=== PATIENT | female | born 1985 | race Caucasian/White ===

== ENCOUNTER 2019-08-08 14:10 | Emergency (ER) | payer BC ==
[2019-08-08 14:19] VITALS: BP 113/84; PULSE 77
[2019-08-08] MEDS ORDERED: Ondansetron 4 MG/2 ML SDV IVPUSH ONE ×2 (14:45→16:42)
[2019-08-08] MEDS ORDERED: Sodium Chloride 0.9% 10 ML Syringe FLUSH PRN (14:45)
[2019-08-08] MEDS ORDERED: Sodium Chloride 0.9% 1,000 ML IV SCH ×2 (14:45→17:15)
--- NOTE | 2019-08-08 15:08 | EDM.PDOC ---
ED HPI GENERAL MEDICAL PROBLEM - General Chief Complaint: Gastrointestinal Problem Stated Complaint: VOMITING Time Seen by Provider: 08/08/19 14:20 Source of Information: Reports: Patient, Family History Limitations: Reports: No Limitations - History of Present Illness INITIAL COMMENTS - FREE TEXT/NARRATIVE: Patient is a 34-year-old female who presents to the emergency department with intractable vomiting since yesterday. She had a PET scan done yesterday in [place] around 2 PM central time. She states approximate 1 hour later she started vomiting and has been unable to eat or drink anything since that time. 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 PET scan was being done to look for malignancy throughout the body. Patient is type II diabetic and usually uses an insulin pump, however she has had that off since the PET scan was done yesterday. She has not checked her blood sugar since yesterday morning. At the onset of vomiting, she denies any abdominal pain, however after vomiting for a few hours she has developed crampy, left upper quadrant abdominal. She has a history of an ostomy with ostomy takedown. States she had necrotizing fasciitis of her buttocks and ostomy was placed as she was not able to have bowel movements per rectum. Ostomy takedown was done in April of this year. She denies any diarrhea. States she had one soft BM this morning and has been passing gas frequently. Denies fever or chills. Treatments FLIGHT ATTENDANT/INFLIGHT SUPERVISOR: Reports: Other (see below) Other Treatments FLIGHT ATTENDANT/INFLIGHT SUPERVISOR: pepto Abdominal Pain Score (Numeric/FACES): 4 - Related Data Allergies Allergy/AdvReac Type Severity Reaction Status Date / Time cefepime Allergy Rash Verified 08/08/19 14:19 penicillin V Allergy Shortness Verified 08/08/19 14:19 of Breath Home Meds: Home Meds Insulin Glarg,Human.Rec.Analog [Lantus] 40 units SUBCUT DAILY 02/28/14 [History] DULoxetine [Cymbalta] 30 mg PO BID 08/08/19 [History] Gabapentin [Neurontin] 600 mg PO BID 08/08/19 [History] Insulin Aspart [NovoLOG] 100 unit SQ 08/08/19 [History] Ondansetron [Zofran ODT] 4 mg PO Q6H PRN #10 tab.dis 08/08/19 [Rx] ED ROS GENERAL - Review of Systems Review Of Systems: See Below Constitutional: Reports: No Symptoms. Denies: Fever, Chills, Weakness HEENT: Reports: No Symptoms Respiratory: Reports: No Symptoms Cardiovascular: Reports: No Symptoms Endocrine: Reports: No Symptoms GI/Abdominal: Reports: Abdominal Pain, Nausea, Vomiting. Denies: Diarrhea : Reports: No Symptoms Musculoskeletal: Reports: No Symptoms Skin: Reports: No Symptoms Neurological: Reports: No Symptoms Psychiatric: Reports: No Symptoms Hematologic/Lymphatic: Reports: No Symptoms Immunologic: Reports: No Symptoms ED EXAM, GI/ABD - Physical Exam Exam: See Below Exam Limited By: No Limitations General Appearance: Alert, WD/WN, Anxious, Other (Tearful) Respiratory/Chest: No Respiratory Distress, Lungs Clear, Normal Breath Sounds, No Accessory Muscle Use, Chest Non-Tender Cardiovascular: Normal Peripheral Pulses, Regular Rate, Rhythm, No Edema, No Gallop, No JVD, No Murmur, No Rub GI/Abdominal Exam: Normal Bowel Sounds, Soft, No Organomegaly, No Distention, No Abnormal Bruit, No Mass, Pelvis Stable, Tender (Epigastric and left upper quadrant tenderness) Neurological: Alert, Oriented, CN II-XII Intact, Normal Cognition, Normal Gait, Normal Reflexes, No Motor/Sensory Deficits Psychiatric: Anxious, Tearful Skin Exam: Warm, Dry, Intact, Normal Color, No Rash Course - Vital Signs Last Recorded V/S: Last Vital Signs Temp 97.5 F 08/08/19 14:15 Pulse 77 08/08/19 14:15 Resp 20 08/08/19 14:15 BP 113/84 08/08/19 14:15 Pulse Ox 98 08/08/19 14:15 - Orders/Labs/Meds Orders: Active Orders 24 hr Category Date Time Status Blood Glucose Check, Bedside [RC] ONETIME Care 08/08/19 15:03 Active Peripheral IV Care [RC] . DIRECTED Care 08/08/19 14:45 Active UA W/MICROSCOPIC [URIN] Stat Lab 08/08/19 16:55 Ordered Peripheral IV Insertion Adult [OM.PC] Stat Oth 08/08/19 14:45 Ordered Labs: Laboratory Tests 08/08/19 08/08/19 08/08/19 Range/Units 15:13 15:25 15:25 WBC 15.69 H (3.98-10.04) K/mm3 RBC 5.33 H (3.98-5.22) M/mm3 Hgb 13.0 D (11.2-15.7) gm/dl Hct 40.6 (34.1-44.9) % MCV 76.2 L (79.4-94.8) fl MCH 24.4 L (25.6-32.2) pg MCHC 32.0 L (32.2-35.5) g/dl RDW Std Deviation 39.0 (36.4-46.3) fL Plt Count 420 H D (182-369) K/mm3 MPV 9.0 L (9.4-12.3) fl Neut % (Auto) 85.3 H (34.0-71.1) % Lymph % (Auto) 9.3 L (19.3-51.7) % [place] % (Auto) 4.7 (4.7-12.5) % Eos % (Auto) 0.2 L (0.7-5.8) Baso % (Auto) 0.2 (0.1-1.2) % Neut # (Auto) 13.39 H (1.56-6.13) K/mm3 Lymph # (Auto) 1.46 (1.18-3.74) K/mm3 [place] # (Auto) 0.73 H (0.24-0.36) K/mm3 Eos # (Auto) 0.03 L (0.04-0.36) K/mm3 Baso # (Auto) 0.03 (0.01-0.08) K/mm3 Manual Slide Review Abnormal smear Sodium 136 (136-145) mEq/L Potassium 3.9 (3.5-5.1) mEq/L Chloride 100 (98-107) mEq/L Carbon Dioxide 24 (21-32) mEq/L Anion Gap 15.9 H (5-15) BUN 17 (7-18) mg/dL Creatinine 0.8 (0.55-1.02) mg/dL Est Cr Clr Drug Dosing 87.48 mL/min Estimated GFR (MDRD) > 60 (>60) mL/min BUN/Creatinine Ratio 21.3 H (14-18) Glucose 275 H (74-106) mg/dL POC Glucose 265 H (70-105) mg/dL Calcium 8.7 (8.5-10.1) mg/dL Magnesium (1.8-2.4) mg/dl Total Bilirubin 0.5 (0.2-1.0) mg/dL AST 12 L (15-37) U/L ALT 20 (14-59) U/L Alkaline Phosphatase 109 (46-116) U/L C-Reactive Protein 0.8 (<1.0) mg/dL Total Protein 7.5 (6.4-8.2) g/dl Albumin 3.3 L (3.4-5.0) g/dl Globulin 4.2 gm/dL Albumin/Globulin Ratio 0.8 L (1-2) Lipase 50 L (73-393) U/L Urine Color (Yellow) Urine Appearance (Clear) Urine pH (5.0-8.0) Ur Specific [place] (1.005-1.030) Urine Protein (Negative) Urine Glucose (UA) (Negative) Urine Ketones (Negative) Urine Occult Blood (Negative) Urine Nitrite (Negative) Urine Bilirubin (Negative) Urine Urobilinogen (0.2-1.0) Ur Leukocyte Esterase (Negative) Urine RBC (0-5) /hpf Urine WBC (0-5) /hpf Ur Squamous Epith Cells (0-5) /hpf Urine Bacteria (FEW) /hpf Urine Mucus (FEW) /hpf Ketones (0.0-0.3) mM 08/08/19 08/08/19 08/08/19 Range/Units 15:25 15:25 16:45 WBC (3.98-10.04) K/mm3 RBC (3.98-5.22) M/mm3 Hgb (11.2-15.7) gm/dl Hct (34.1-44.9) % MCV (79.4-94.8) fl MCH (25.6-32.2) pg MCHC (32.2-35.5) g/dl RDW Std Deviation (36.4-46.3) fL Plt Count (182-369) K/mm3 MPV (9.4-12.3) fl Neut % (Auto) (34.0-71.1) % Lymph % (Auto) (19.3-51.7) % [place] % (Auto) (4.7-12.5) % Eos % (Auto) (0.7-5.8) Baso % (Auto) (0.1-1.2) % Neut # (Auto) (1.56-6.13) K/mm3 Lymph # (Auto) (1.18-3.74) K/mm3 [place] # (Auto) (0.24-0.36) K/mm3 Eos # (Auto) (0.04-0.36) K/mm3 Baso # (Auto) (0.01-0.08) K/mm3 Manual Slide Review Sodium (136-145) mEq/L Potassium (3.5-5.1) mEq/L Chloride (98-107) mEq/L Carbon Dioxide (21-32) mEq/L Anion Gap (5-15) BUN (7-18) mg/dL Creatinine (0.55-1.02) mg/dL Est Cr Clr Drug Dosing mL/min Estimated GFR (MDRD) (>60) mL/min BUN/Creatinine Ratio (14-18) Glucose (74-106) mg/dL POC Glucose (70-105) mg/dL Calcium (8.5-10.1) mg/dL Magnesium 1.7 L (1.8-2.4) mg/dl Total Bilirubin (0.2-1.0) mg/dL AST (15-37) U/L ALT (14-59) U/L Alkaline Phosphatase (46-116) U/L C-Reactive Protein (<1.0) mg/dL Total Protein (6.4-8.2) g/dl Albumin (3.4-5.0) g/dl Globulin gm/dL Albumin/Globulin Ratio (1-2) Lipase (73-393) U/L Urine Color Yellow (Yellow) Urine Appearance Clear (Clear) Urine pH 6.0 (5.0-8.0) Ur Specific [place] > or = 1.030 (1.005-1.030) Urine Protein Negative (Negative) Urine Glucose (UA) 2+ H (Negative) Urine Ketones 4+ H (Negative) Urine Occult Blood Negative (Negative) Urine Nitrite Negative (Negative) Urine Bilirubin Negative (Negative) Urine Urobilinogen 0.2 (0.2-1.0) Ur Leukocyte Esterase Negative (Negative) Urine RBC 0-5 (0-5) /hpf Urine WBC 0-5 (0-5) /hpf Ur Squamous Epith Cells 5-10 H (0-5) /hpf Urine Bacteria Few (FEW) /hpf Urine Mucus Moderate H (FEW) /hpf Ketones 0.73 (0.0-0.3) mM 08/08/19 Range/Units 17:41 WBC (3.98-10.04) K/mm3 RBC (3.98-5.22) M/mm3 Hgb (11.2-15.7) gm/dl Hct (34.1-44.9) % MCV (79.4-94.8) fl MCH (25.6-32.2) pg MCHC (32.2-35.5) g/dl RDW Std Deviation (36.4-46.3) fL Plt Count (182-369) K/mm3 MPV (9.4-12.3) fl Neut % (Auto) (34.0-71.1) % Lymph % (Auto) (19.3-51.7) % [place] % (Auto) (4.7-12.5) % Eos % (Auto) (0.7-5.8) Baso % (Auto) (0.1-1.2) % Neut # (Auto) (1.56-6.13) K/mm3 Lymph # (Auto) (1.18-3.74) K/mm3 [place] # (Auto) (0.24-0.36) K/mm3 Eos # (Auto) (0.04-0.36) K/mm3 Baso # (Auto) (0.01-0.08) K/mm3 Manual Slide Review Sodium (136-145) mEq/L Potassium (3.5-5.1) mEq/L Chloride (98-107) mEq/L Carbon Dioxide (21-32) mEq/L Anion Gap (5-15) BUN (7-18) mg/dL Creatinine (0.55-1.02) mg/dL Est Cr Clr Drug Dosing mL/min Estimated GFR (MDRD) (>60) mL/min BUN/Creatinine Ratio (14-18) Glucose (74-106) mg/dL POC Glucose 206 H (70-105) mg/dL Calcium (8.5-10.1) mg/dL Magnesium (1.8-2.4) mg/dl Total Bilirubin (0.2-1.0) mg/dL AST (15-37) U/L ALT (14-59) U/L Alkaline Phosphatase (46-116) U/L C-Reactive Protein (<1.0) mg/dL Total Protein (6.4-8.2) g/dl Albumin (3.4-5.0) g/dl Globulin gm/dL Albumin/Globulin Ratio (1-2) Lipase (73-393) U/L Urine Color (Yellow) Urine Appearance (Clear) Urine pH (5.0-8.0) Ur Specific [place] (1.005-1.030) Urine Protein (Negative) Urine Glucose (UA) (Negative) Urine Ketones (Negative) Urine Occult Blood (Negative) Urine Nitrite (Negative) Urine Bilirubin (Negative) Urine Urobilinogen (0.2-1.0) Ur Leukocyte Esterase (Negative) Urine RBC (0-5) /hpf Urine WBC (0-5) /hpf Ur Squamous Epith Cells (0-5) /hpf Urine Bacteria (FEW) /hpf Urine Mucus (FEW) /hpf Ketones (0.0-0.3) mM Meds: Medications Discontinued Medications Generic Name Dose Route Start Last Admin Trade Name Freq PRN Reason Stop Dose Admin Hydromorphone HCl 0.5 mg 08/08/19 16:24 08/08/19 16:47 Dilaudid IVPUSH 08/08/19 16:25 0.5 mg ONETIME ONE Administration Hydromorphone HCl 0.5 mg 08/08/19 17:16 08/08/19 17:31 Dilaudid IVPUSH 08/08/19 17:17 0.5 mg ONETIME ONE Administration Sodium Chloride 1,000 mls @ 999 mls/hr 08/08/19 14:45 08/08/19 15:31 Normal Saline IV 999 mls/hr ASDIRECTED ROLAND Administration Sodium Chloride 1,000 mls @ 150 mls/hr 08/08/19 17:15 08/08/19 17:32 Normal Saline IV 150 mls/hr ASDIRECTED ROLAND Administration Insulin Human Regular 5 unit 08/09/19 17:14 Humulin R SUBCUT 08/09/19 17:15 ONETIME ONE Insulin Human Regular 5 unit 08/08/19 17:14 08/08/19 17:38 Humulin R SUBCUT 08/08/19 17:15 5 unit ONETIME ONE Administration Lorazepam 0.5 mg 08/08/19 17:09 08/08/19 17:31 Ativan IVPUSH 08/08/19 17:10 0.5 mg ONETIME ONE Administration Ondansetron HCl 4 mg 08/08/19 14:45 08/08/19 15:31 Zofran IVPUSH 08/08/19 14:46 4 mg ONETIME ONE Administration Ondansetron HCl 4 mg 08/08/19 16:42 08/08/19 16:46 Zofran IVPUSH 08/08/19 16:43 4 mg ONETIME ONE Administration Sodium Chloride 10 ml 08/08/19 14:45 08/08/19 15:31 Saline Flush FLUSH 10 ml ASDIRECTED PRN Administration Keep Vein Open - Re-Assessments/Exams Free Text/Narrative Re-Assessment/Exam: 08/08/19 16:26 Hematology was significant for WBC at 15.69, anion gap 15.9. Lipase was low at 50, ketones normal at 0.73. Patient has not been vomiting further. She is complaining of pain in her hand and her right foot. She states that she has neuropathy and was unable to take her gabapentin today due to the vomiting. I will order Dilaudid 0.5 mg. She is giving us a urine sample now. 08/08/19 1710 Patient did not have much relief after the Dilaudid 0.5. She also is quite anxious. I have ordered Ativan 0.5 mg IV, Dilaudid 0.5 mg IV, and 5 units of subcutaneous insulin. 08/08/19 18:10 Patient is feeling much better after the medications given. Her abdominal pain has resolved. She is attempting to drink water and diet soda at this time. 08/08/19 18:40 Patient continues to feel well, has had no further pain or vomiting and has been able to keep fluids down. We will discharge her home with a prescription for Zofran and clear clear liquid diet for the next 24 to 48 hours. Departure - Departure Time of Disposition: 18:45 Disposition: Home, Self-Care 01 Condition: Good Clinical Impression: Vomiting, Abdominal pain - Discharge Information *PRESCRIPTION DRUG MONITORING PROGRAM REVIEWED*: No *COPY OF PRESCRIPTION DRUG MONITORING REPORT IN PATIENT GANGA: No Prescriptions: Ondansetron [Zofran ODT] 4 mg PO Q6H PRN #10 tab.dis PRN Reason: Nausea/Vomiting Instructions: Abdominal Pain, Adult, Vomiting, Adult Referrals: Crissy Perez NP [Primary Care Provider] - Forms: ED Department Discharge Additional Instructions: You were seen in the emergency department for intractable vomiting and abdominal pain since last night. Blood work and urinalysis was completed and found to be overall unremarkable. While in the ER you received a liter of IV fluids, Zofran for nausea, Dilaudid for pain, and Ativan for anxiety. He did feel much better after these medications. You have been able to keep fluids down while in the emergency department. Recommend that you go home and rest. Maintain a clear liquid diet for the next 24 to 48 hours. After that you may slowly advance as tolerated. Avoid dairy products and fruit juices until your symptoms have completely resolved. A prescription for Zofran has been sent to [facility] and [facility]. You may use this every 6 hours as needed for nausea. If your symptoms should worsen, please not hesitate to return to the emergency departme nt. Sepsis Event Note (ED) - Evaluation Sepsis Screening Result: No Definite Risk - Focused Exam Vital Signs: Vital Signs Temp Pulse Resp BP Pulse Ox 08/08/19 14:15 97.5 F 77 20 113/84 98 - My Orders Last 24 Hours: My Active Orders 08/08/19 14:45 Peripheral IV Care [RC] . DIRECTED Peripheral IV Insertion Adult [OM.PC] Stat 08/08/19 15:03 Blood Glucose Check, Bedside [] ONETIME 08/08/19 16:55 UA W/MICROSCOPIC [URIN] Stat - Assessment/Plan Last 24 Hours: My Active Orders 08/08/19 14:45 Peripheral IV Care [RC] . DIRECTED Peripheral IV Insertion Adult [OM.PC] Stat 08/08/19 15:03 Blood Glucose Check, Bedside [RC] ONETIME 08/08/19 16:55 UA W/MICROSCOPIC [URIN] Stat
[2019-08-08] MEDS ORDERED: HYDROmorphone 0.5 MG/0.5 ML Syringe IVPUSH ONE ×2 (16:24→17:16)
[2019-08-08] MEDS ORDERED: LORazepam 2 MG/ML SDV IVPUSH ONE (17:09)
[2019-08-08] MEDS ORDERED: Insulin Regular, Human 100 Units/ML 3 ML Vial SUBCUT ONE (17:14)
[2019-08-09] MEDS ORDERED: Insulin Regular, Human 100 Units/ML 3 ML Vial SUBCUT ONE (17:14)
== END 2019-08-08 18:55 | disposition home or self-care (01) ==
LOC: JD.ED 14:10
DX: R11.10 Vomiting, unspecified (principal); R10.12 Left upper quadrant pain; R10.13 Epigastric pain; Z88.1 Allergy status to other antibiotic agents; Z88.0 Allergy status to penicillin; Z79.4 Long term (current) use of insulin; Z79.899 Other long term (current) drug therapy
CPT/HCPCS: 36415; 80053; 81001; 82009; 82962; 83690; 83735; 85025; 86140; 96361; 96374; 96375; 96376; 99284; J1170; J1815; J2060; J2405; J7030

== ENCOUNTER 2019-11-28 16:52 | Emergency (ER) | payer BC ==
--- NOTE | 2019-11-28 18:10 | EDM.PDOC ---
ED HPI GENERAL MEDICAL PROBLEM - General Chief Complaint: Lower Extremity Injury/Pain Stated Complaint: LEAKAGE POST SURGERY Time Seen by Provider: 11/28/19 17:33 Source of Information: Reports: Patient, RN Notes Reviewed History Limitations: Reports: No Limitations - History of Present Illness INITIAL COMMENTS - FREE TEXT/NARRATIVE: Patient is a 34-year-old female who presents to the ED for drainage at her surgical site. 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 Patel and Dr. Chang at [facility], without complications. She was sent home with pain medications and return precautions with a follow-up appointment sometime at the end of November. She states that the pain is manageable, but she does appreciate some drainage from the site, and this was draining through the splint that was placed. She is having no fevers, no chills, no cough no shortness of breath, and has been feeling well otherwise. Right Foot Pain Score (Numeric/FACES): 6 - Related Data Allergies Allergy/AdvReac Type Severity Reaction Status Date / Time cefepime Allergy Rash Verified 11/28/19 17:24 penicillin V Allergy Shortness Verified 11/28/19 17:24 of Breath Home Meds: Home Meds Gabapentin [Neurontin] 600 mg PO BID 08/08/19 [History] Insulin Aspart [NovoLOG] 100 unit SQ 08/08/19 [History] Past Medical History HEENT History: Reports: Impaired Vision Gastrointestinal History: Reports: Other (See Below) Musculoskeletal History: Reports: Other (See Below) Other Musculoskeletal History: tumor to Right heel Neurological History: Reports: Neuropathy, Diabetic Psychiatric History: Reports: Anxiety, Depression Endocrine/Metabolic History: Reports: Diabetes, Type II - Infectious Disease History Infectious Disease History: Reports: Other (See Below) Other Infectious Disease History: michelle dockery - Past Surgical History GI Surgical History: Reports: Other (See Below) Other GI Surgeries/Procedures: colostomy reversal Dermatological Surgical History: Reports: Plastic Surgical Reconstruction/Repair, Skin Graft Social & Family History - Caffeine Use Caffeine Use: Reports: Soda, Tea Review of Systems - Review of Systems Review Of Systems: Comprehensive ROS is negative, except as noted in HPI. ED EXAM, GENERAL - Physical Exam Exam: See Below Exam Limited By: No Limitations General Appearance: Alert, WD/WN, No Apparent Distress Respiratory/Chest: No Respiratory Distress, Lungs Clear, Normal Breath Sounds, No Accessory Muscle Use, Chest Non-Tender Cardiovascular: Normal Peripheral Pulses, Regular Rate, Rhythm, No Murmur Peripheral Pulses: 2+: Dorsalis Pedis (L), Dorsalis Pedis (R) Extremities: Normal Capillary Refill, Redness (at site of incision but not overly tender) Neurological: Alert, Oriented, Normal Cognition, No Motor/Sensory Deficits Psychiatric: Normal Affect, Normal Mood Skin Exam: Warm, Dry, Normal Color, No Rash, Wound/Incision ([place] in place to the wound, there is what appears to be serous bloody drainage coming from the wound, there is about 2+ edema on the patient's medial malleolus.) ED TRAUMA EXTREMITY PROCEDURES - Splinting Right Lower Extremity Splint Site: R ankle Pre-Procedure NV Status: Normal Post-Procedure NV Status: Normal Splint Material: Fiberglass Splint Design: Posterior Applied & Form Fitted By: Provider, Nurse Provider Post-Splint Application NV Check: NV Status Normal, Good Position Complications: No Course - Vital Signs Last Recorded V/S: Last Vital Signs Temp 97.8 F 11/28/19 18:44 Pulse 74 11/28/19 18:44 Resp 16 11/28/19 18:44 BP 94/60 11/28/19 18:44 Pulse Ox 94 L 11/28/19 18:44 - Orders/Labs/Meds Meds: Medications Discontinued Medications Generic Name Dose Route Start Last Admin Trade Name Freq PRN Reason Stop Dose Admin Oxycodone/Acetaminophen 1 tab 11/28/19 19:27 11/28/19 19:30 Percocet 325-5 Mg PO 11/28/19 19:28 1 tab ONETIME ONE Administration - Re-Assessments/Exams Free Text/Narrative Re-Assessment/Exam: 11/28/19 18:15 I was in to evaluate the patient, along with Dr. Butler regarding the patient's cadaver bone. The patient's wound was draining, which appeared to be serosanguineous drainage. I did call [facility] for evaluation, and was able to talk with the straw baler web application dev specialist, and he states to redress the wound, preferably with Betadine gauze, and give the patient doxycycline 100 mg twice daily x7 days. He states also to re-splint the wound for immobilization. Departure - Departure Time of Disposition: 19:53 Disposition: Home, Self-Care 01 Condition: Good Clinical Impression: Draining postoperative wound Qualifiers: Encounter type: initial encounter Qualified Code(s): T81.89XA - Other complications of procedures, not elsewhere classified, initial encounter - Discharge Information *PRESCRIPTION DRUG MONITORING PROGRAM REVIEWED*: No *COPY OF PRESCRIPTION DRUG MONITORING REPORT IN PATIENT GANGA: No Instructions: Cast or Splint Care, Adult, [id number] Referrals: Crissy Perez NP [Primary Care Provider] - Forms: ED Department Discharge Additional Instructions: You were evaluated in the ER today for your draining wound. This was identified to be serosanguineous, and is an okay type of drainage to be coming from the wound postop. You were placed on doxycycline 100 mg twice daily for the next 7 days to provide further antibiotic coverage. Your case was discussed with on-call surgeons at [facility] in [place], and they were okay with this plan, they will be in contact with your surgeons, hopefully and have them follow-up with you tomorrow. Please keep all other appointments as previously scheduled. You were given a few more absorbent pads, if you should start draining through the bandages today, you may take the splint off very carefully, replace the pads, and have your help you rewrap the foot as we showed you today. Please return to the ER at any time if symptoms change or worsen. Sepsis Event Note (ED) - Evaluation Sepsis Screening Result: No Definite Risk - Focused Exam Vital Signs: Vital Signs Temp Pulse Resp BP Pulse Ox 11/28/19 18:44 97.8 F 74 16 94/60 94 L 11/28/19 17:18 98.0 F 83 20 101/64 94 L
[2019-11-28 18:45] VITALS: BP 94/60; PULSE 74
[2019-11-28] MEDS ORDERED: Acetaminophen/oxyCODONE 325-5 MG Tab PO ONE (19:27)
== END 2019-11-28 20:15 | disposition home or self-care (01) ==
LOC: JD.ED 16:52
DX: T81.89XA Other complications of procedures, not elsewhere classified, initial encounter (principal); E11.40 Type 2 diabetes mellitus with diabetic neuropathy, unspecified; Z79.4 Long term (current) use of insulin; Z88.0 Allergy status to penicillin; Z88.1 Allergy status to other antibiotic agents
CPT/HCPCS: 29515; 99283; A9270

== ENCOUNTER 2019-12-15 23:42 | Emergency (ER) | payer BC ==
[2019-12-16 00:01] VITALS: BP 103/68; PULSE 91
--- NOTE | 2019-12-16 01:09 | EDM.PDOC ---
ED HPI GENERAL MEDICAL PROBLEM - General Chief Complaint: Lower Extremity Injury/Pain Stated Complaint: OPEN WOUND ON RIGHT HEEL Time Seen by Provider: 12/16/19 00:59 - History of Present Illness INITIAL COMMENTS - FREE TEXT/NARRATIVE: 34-year-old female presents the emergency room with a draining lesion on her right heel. 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 This was done November 22. She had follow-up with her surgeon on 06 December. Earlier this last week one of her stacey pulled loose and the incision opened up in this area. She has had increased watery drainage from this area. She is not aware of any fevers or chills. She is strictly staying off this no weightbearing. - Related Data Allergies Allergy/AdvReac Type Severity Reaction Status Date / Time cefepime Allergy Rash Verified 12/16/19 00:01 penicillin V Allergy Shortness Verified 12/16/19 00:01 of Breath Home Meds: Home Meds Gabapentin [Neurontin] 600 mg PO TID 08/08/19 [History] Insulin Aspart [NovoLOG] 50 unit SQ DAILY 08/08/19 [History] Escitalopram Oxalate [Lexapro] 20 mg PO DAILY 12/16/19 [History] hydrOXYzine pamoate [Hydroxyzine Pamoate] 50 mg PO Q6H PRN 12/16/19 [History] Past Medical History HEENT History: Reports: Impaired Vision Gastrointestinal History: Reports: Other (See Below) Musculoskeletal History: Reports: Other (See Below) Other Musculoskeletal History: tumor to Right heel Neurological History: Reports: Neuropathy, Diabetic Psychiatric History: Reports: Anxiety, Depression Endocrine/Metabolic History: Reports: Diabetes, Type II - Infectious Disease History Infectious Disease History: Reports: Other (See Below) Other Infectious Disease History: epstien dockery - Past Surgical History GI Surgical History: Reports: Other (See Below) Other GI Surgeries/Procedures: colostomy reversal Dermatological Surgical History: Reports: Plastic Surgical Reconstruction/Repair, Skin Graft Social & Family History - Tobacco Use Tobacco Use Status *Q: Never Tobacco User - Caffeine Use Caffeine Use: Reports: Soda, Tea - Recreational Drug Use Recreational Drug Use: No Review of Systems - Review of Systems Review Of Systems: See Below Constitutional: Reports: No Symptoms Respiratory: Reports: No Symptoms Cardiovascular: Reports: No Symptoms GI/Abdominal: Reports: No Symptoms Neurological: Reports: No Symptoms Psychiatric: Reports: Anxiety (Mild secondary to her current health problems) ED EXAM, GENERAL - Physical Exam Exam: See Below Exam Limited By: No Limitations General Appearance: Alert, Anxious, Mild Distress (Secondary to her anxiety) Head: Atraumatic, Normocephalic Neck: Normal Inspection, Supple, Non-Tender, Full Range of Motion Respiratory/Chest: No Respiratory Distress, Lungs Clear, Normal Breath Sounds Cardiovascular: Regular Rate, Rhythm, No Edema, No Murmur Extremities: Other (Leg shows mildly edematous area with no significant erythema or warmth around the ankle foot or incision site. She is got a 1-1/2 cm long area open with some watery drainage. Culture was obtained of the fluid. The skin it is tense indicating some inflammation given the significance of the surgery this probably is not abnormal.) Course - Vital Signs Last Recorded V/S: Last Vital Signs Temp 37.1 C 12/15/19 23:58 Pulse 91 12/15/19 23:58 Resp 16 12/15/19 23:58 BP 103/68 12/15/19 23:58 Pulse Ox 99 12/15/19 23:58 - Orders/Labs/Meds Orders: Active Orders 24 hr Category Date Time Status Calcaneous Rt [CR] Stat Exams 12/16/19 01:23 Taken CULTURE WOUND [RM] Stat Lab 12/16/19 01:15 Received Labs: Laboratory Tests 12/16/19 12/16/19 12/16/19 Range/Units 01:34 01:34 01:34 WBC 10.34 H (3.98-10.04) K/mm3 RBC 4.55 (3.98-5.22) M/mm3 Hgb 10.1 L D (11.2-15.7) gm/dl Hct 33.7 L (34.1-44.9) % MCV 74.1 L (79.4-94.8) fl MCH 22.2 L (25.6-32.2) pg MCHC 30.0 L (32.2-35.5) g/dl RDW Std Deviation 40.9 (36.4-46.3) fL Plt Count 793 H D (182-369) K/mm3 MPV 8.3 L (9.4-12.3) fl Neutrophils % (Manual) 56 (40-60) % Band Neutrophils % 0 (0-10) % Lymphocytes % (Manual) 25 (20-40) % Atypical Lymphs % 11 % Monocytes % (Manual) 5 (2-10) % Eosinophils % (Manual) 3 (0.7-5.8) % Basophils % (Manual) 0 L (0.1-1.2) Platelet Estimate Marked inc Plt Morphology Comment Normal Hypochromasia 2+ moderate Microcytosis 2+ moderate RBC Morph Comment Not Reportable ESR 70 H (0-20) mm/hr Sodium 136 (136-145) mEq/L Potassium 4.2 (3.5-5.1) mEq/L Chloride 100 (98-107) mEq/L Carbon Dioxide 27 (21-32) mEq/L Anion Gap 13.2 (5-15) BUN 16 (7-18) mg/dL Creatinine 0.9 (0.55-1.02) mg/dL Est Cr Clr Drug Dosing 77.76 mL/min Estimated GFR (MDRD) > 60 (>60) mL/min BUN/Creatinine Ratio 17.8 (14-18) Glucose 158 H (74-106) mg/dL Calcium 8.8 (8.5-10.1) mg/dL Total Bilirubin 0.2 (0.2-1.0) mg/dL AST 6 L (15-37) U/L ALT 11 L (14-59) U/L Alkaline Phosphatase 112 (46-116) U/L C-Reactive Protein 3.9 H* (<1.0) mg/dL Total Protein 7.7 (6.4-8.2) g/dl Albumin 2.5 L (3.4-5.0) g/dl Globulin 5.2 gm/dL Albumin/Globulin Ratio 0.5 L (1-2) Meds: Medications Discontinued Medications Generic Name Dose Route Start Last Admin Trade Name Freq PRN Reason Stop Dose Admin Lorazepam 0.5 mg 12/16/19 02:00 12/16/19 02:23 Ativan PO 12/16/19 02:01 0.5 mg ONETIME ONE Administration - Radiology Interpretation Free Text/Narrative:: I will check x-rays a CBC and inflammatory markers. - Re-Assessments/Exams Free Text/Narrative Re-Assessment/Exam: 12/16/19 04:31 X-ray examination of her foot shows multiple surgical screws that look like they are in good position over the bone graft the broken bone screws do bridge the calcaneocuboid joint as well as the talocalcaneal joint. Multiple skin stacey appreciated questionable cuboid fracture with the bone screw bridging the calcaneocuboid joint her white count is minimally elevated with an absolutely normal differential no bandemia and no elevated neutrophils lymphocytes are normal. C-reactive protein and sed rate are elevated. Patient's case was discussed with Dr. Daily orthopedic surgeon at [facility] who is on-call for Dr. Chang. His recommendation is to have the patient call first thing Tuesday 7:00 our time to discuss the situation with Dr. Chang and/or staff to discuss follow-up this next week possibly Tuesday. I have discussed this with the patient and her overall situation and have strongly recommended she work on keeping her foot elevated as much as she can above the level of her heart and see if this facilitates some of the swelling in her foot and ankle and diminishes the drainage. Is in agreement to the treatment plan as stated above and she agrees to return to the emergency room with any questions problems or worsening symptoms. Departure - Departure Time of Disposition: 04:34 Disposition: Home, Self-Care 01 Clinical Impression: Postoperative wound breakdown - Discharge Information Referrals: Crissy Perez NP [Primary Care Provider] - Forms: ED Department Discharge Additional Instructions: Return to the emergency room with any questions problems or worsening symptoms. Return if you develop any fevers if the area becomes more swollen or red. Call Dr. Chang first thing Tuesday, 7:00 our time, and request follow-up early this next week possibly even later Tuesday. Keep your foot elevated as much as you can above the level of your heart to see if this helps with the swelling around your ankle and foot and decreases the drainage from the area. Sepsis Event Note (ED) - Evaluation Sepsis Screening Result: No Definite Risk - Focused Exam Vital Signs: Vital Signs Temp Pulse Resp BP Pulse Ox 12/15/19 23:58 37.1 C 91 16 103/68 99 - My Orders Last 24 Hours: My Active Orders 12/16/19 01:15 CULTURE WOUND [RM] Stat 12/16/19 01:23 Calcaneous Rt [CR] Stat - Assessment/Plan Last 24 Hours: My Active Orders 12/16/19 01:15 CULTURE WOUND [RM] Stat 12/16/19 01:23 Calcaneous Rt [CR] Stat
[2019-12-16] MEDS ORDERED: LORazepam 0.5 MG Tab PO ONE (02:00)
--- NOTE | 2019-12-17 09:59 | CR ---
PROCEDURE INFORMATION: Exam: XR Right Calcaneus Exam date and time: 12/16/2019 1:18 AM Age: 34 years old Clinical indication: Edema and swelling, leg or foot; Location not specified; Prior surgery; Surgery date: <1 month; Surgery type: RT calcaneus cadaver bone inserted with pins/screws; Patient HX: Swelling, right foot lateral side open wound, oozing S/P SX 3 weeks prior TECHNIQUE: Imaging protocol: XR of the Right calcaneus. Views: 2 or more views. COMPARISON: No relevant prior studies available. FINDINGS: Bones/joints: 2 cancellous bone screws are seen stabilizing prior recent comminuted posterior calcaneal fractures with multiple associated small bone fragments. Osteopenia. No neoplastic osseous lesion. No acute joint dislocation. Bone screw bridging calcaneocuboid joint with probable cuboid fracture with adjacent bone fragments. Bone screws extend across talocalcaneal joint. Soft tissues: Posterior and plantar skin stacey noted laterally. IMPRESSION: 1. Postoperative changes as above. 2. Remainder of findings described as above. Thank you for allowing us to participate in the care of your patient. Dictated and Authenticated by: Shahid Carranza MD 12/16/2019 3:31 AM Central Time ([place] & [place]) RACHEL
== END 2019-12-16 04:50 | disposition home or self-care (01) ==
LOC: JD.ED 23:42
DX: T81.31XA Disruption of external operation (surgical) wound, not elsewhere classified, initial encounter (principal); E11.40 Type 2 diabetes mellitus with diabetic neuropathy, unspecified; F41.9 Anxiety disorder, unspecified; F32.9 Major depressive disorder, single episode, unspecified; Z88.0 Allergy status to penicillin; Z88.1 Allergy status to other antibiotic agents; Z79.4 Long term (current) use of insulin; Z79.899 Other long term (current) drug therapy
CPT/HCPCS: 36415; 73650; 80053; 85007; 85027; 85652; 86140; 87070; 87186; 99284; A9270; 99283

== ENCOUNTER 2020-02-04 11:17 | Emergency (ER) | payer BC ==
[2020-02-04 11:39] VITALS: BP 112/72; PULSE 93
--- NOTE | 2020-02-04 12:36 | EDM.PDOC ---
ED HPI GENERAL MEDICAL PROBLEM - General Chief Complaint: Wound Recheck Stated Complaint: SENT BY [facility] FOR FOOT INFECTION Time Seen by Provider: 02/04/20 12:20 Source of Information: Reports: Patient History Limitations: Reports: No Limitations, Other (Vital signs in the emergency department temp 98.2, pulse 93, respiratory rate 18, blood pressure 112/72, pulse ox 100% on room air.) - History of Present Illness INITIAL COMMENTS - FREE TEXT/NARRATIVE: 34-year-old female presents to the ER from [facility] with complaints of an infected heel. 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 She has had a wound VAC in place since a month after surgery because it was not healing. Of note patient is a diabetic and she does smoke so she is more likely to have delayed wound healing. Patient states that back in December she was also placed on a 7-day course of clindamycin for an infection to that heel. Patient states that on January 30 the wound VAC was changed per physical therapy and they noted white purulent drainage coming from the incision site to her heel. Patient states that since she has noticed some chills starting over the last couple of days and more erythema and warmth spreading from wound site. Right Foot Pain Score (Numeric/FACES): 6 - Related Data Allergies Allergy/AdvReac Type Severity Reaction Status Date / Time cefepime Allergy Rash Verified 02/04/20 11:39 penicillin V Allergy Shortness Verified 02/04/20 11:39 of Breath Home Meds: Home Meds Gabapentin [Neurontin] 600 mg PO TID 08/08/19 [History] Insulin Aspart [NovoLOG] 50 unit SQ DAILY 08/08/19 [History] Escitalopram Oxalate [Lexapro] 20 mg PO DAILY 12/16/19 [History] hydrOXYzine pamoate [Hydroxyzine Pamoate] 50 mg PO Q6H PRN 12/16/19 [History] Doxycycline [Vibra-Tabs] 100 mg PO Q12HR #27 tab 02/04/20 [Rx] Past Medical History HEENT History: Reports: Impaired Vision Gastrointestinal History: Reports: Other (See Below) Musculoskeletal History: Reports: Other (See Below) Other Musculoskeletal History: tumor to Right heel, cadavar placed to heel. Neurological History: Reports: Neuropathy, Diabetic Psychiatric History: Reports: Anxiety, Depression Endocrine/Metabolic History: Reports: Diabetes, Type II - Infectious Disease History Infectious Disease History: Reports: Other (See Below) Other Infectious Disease History: epstien dockery - Past Surgical History GI Surgical History: Reports: Other (See Below) Other GI Surgeries/Procedures: colostomy reversal Other Musculoskeletal Surgeries/Procedures:: tumor to Right heel removed, cadavar placed to heel. Dermatological Surgical History: Reports: Plastic Surgical Reconstruction/Repair, Skin Graft Social & Family History - Tobacco Use Tobacco Use Status *Q: Current Some Day Tobacco User Years of Tobacco use: 18 Packs/Tins Daily: 0.1 - Caffeine Use Caffeine Use: Reports: Soda, Tea ED ROS GENERAL - Review of Systems Review Of Systems: See Below Constitutional: Reports: Chills. Denies: Fever HEENT: Reports: No Symptoms, Glasses Respiratory: Reports: No Symptoms Cardiovascular: Reports: Edema (Bilateral lower extremities) Endocrine: Reports: No Symptoms GI/Abdominal: Reports: No Symptoms : Reports: No Symptoms Musculoskeletal: Reports: Foot Pain (Right foot) Skin: Reports: Erythema, Wound (Right heel), Change in Color, Other (Edema) Neurological: Reports: No Symptoms Psychiatric: Reports: No Symptoms Hematologic/Lymphatic: Reports: No Symptoms Immunologic: Reports: No Symptoms ED EXAM, SKIN/RASH Exam: See Below Exam Limited By: No Limitations General Appearance: Alert, WD/WN, No Apparent Distress Eye Exam: Bilateral Eye: PERRL Ears: Hearing Grossly Normal Nose: Normal Inspection Throat/Mouth: Normal Voice, No Airway Compromise Head: Atraumatic, Normocephalic Neck: Normal Inspection, Supple, Non-Tender, Full Range of Motion Respiratory/Chest: No Respiratory Distress, Lungs Clear, Normal Breath Sounds, No Accessory Muscle Use, Chest Non-Tender Cardiovascular: Normal Peripheral Pulses, Regular Rate, Rhythm, No Murmur. No: No Edema (3+ to right lower extremity) Peripheral Pulses: 2+: Radial (L), Radial (R), Dorsalis Pedis (L), Dorsalis Pedis (R) GI/Abdominal: Normal Bowel Sounds, Soft, Non-Tender, No Distention (Female) Exam: Deferred Rectal (Female) Exam: Deferred Back Exam: Normal Inspection, Full Range of Motion Extremities: Pedal Edema (Right lower extremity 3+.), Increased Warmth (Right lower extremity just below the ankle medial and lateral Up to the mid Achilles area posterior. ), Redness (No erythema noted to the dorsal aspect of the patient's right lower extremity. Erythema noted below the ankle laterally and medially and posteriorly to the mid Achilles area. Patient states this is similar in appearance to when she was previously placed on antibiotics mid- December.) Neurological: Alert, Oriented, Normal Cognition, Normal Reflexes Psychiatric: Normal Affect, Normal Mood Skin: Warm, Dry, Normal Color, No Rash, Erythema (Right lower extremity just below the ankle medial and lateral Up to the mid Achilles area posterior. ), Increased Warmth (Right footRight lower extremity just below the ankle medial and lateral Up to the mid Achilles area posterior. ) Location, Skin: Lower Extremity, Right (Surgical site with increased erythema and edema noted to right lower extremity. Purulent drainage noted to wound VAC collection chamber. Patient had a bone tumor removed from the right calcaneus, cadaver bone was placed on November 22. Wound VAC was placed to the right heel mid December after patient developed an infection and had delayed wound healing. Patient was also placed on clindamycin for 7 days at that time. Erythema resolving per wound markings that were placed by physical therapy with last wound VAC change.) Associated features: Warmth, Tenderness, Swelling Lymphatic: No Adenopathy Course - Vital Signs Text/Narrative:: 34-year-old female presenting the emergency department with complaints of increased warmth and redness noted to her left heel. Of note she is status post removal of bone tumor from the right calcaneus with a cadaver bone placed on November 22. A month after surgery the patient did have a wound VAC placed and was started on clindamycin x7 days for delayed wound healing and infection to the surgical site. Patient is today stating she has noted an increased amount of serosanguineous drainage noted to her wound VAC, however she also states that she has had chills the past couple of nights. Patient states wound looks and feels similar to when she had an infection about a month ago and was placed on antibiotics. Erythema has decreased from where physical therapy had marked it with last dressing change, however there is still a significant amount of erythema and warmth noted to right heel to just below the ankle laterally and medially. There is no erythema noted to the dorsal aspect of the patient's foot, however there is 3+ edema noted to the patient's right lower extremity. Patient states this is normal for her. She is afebrile at 98.2. I will order doxycycline 100 mg for this patient. Call placed into the patient's cancer doctor Dr. Patel and awaiting return call. Last Recorded V/S: Last Vital Signs Temp 98.2 F 02/04/20 11:28 Pulse 93 02/04/20 11:28 Resp 18 02/04/20 11:28 BP 112/72 02/04/20 11:28 Pulse Ox 100 02/04/20 11:28 - Orders/Labs/Meds Meds: Medications Discontinued Medications Generic Name Dose Route Start Last Admin Trade Name Loren PRN Reason Stop Dose Admin Doxycycline Hyclate 100 mg 02/04/20 12:47 Vibramycin PO 02/04/20 12:48 ONETIME ONE - Re-Assessments/Exams Free Text/Narrative Re-Assessment/Exam: 02/04/20 13:15 I spoke with patient's physician, and updated him on the patient's wound. He was agreeable for me placing the patient on doxycycline 100 mg twice daily for 2 weeks. She is scheduled to meet with him at his clinic on February 20. Physical therapy to continue with dressing changes previously scheduled. Departure - Departure Time of Disposition: 13:19 Disposition: Home, Self-Care 01 Condition: Good Clinical Impression: Draining postoperative wound Qualifiers: Encounter type: initial encounter Qualified Code(s): T81.89XA - Other complications of procedures, not elsewhere classified, initial encounter - Discharge Information Prescriptions: Doxycycline [Vibra-Tabs] 100 mg PO Q12HR #27 tab Instructions: Wound Infection, [id number] Referrals: Crissy Perez NP [Primary Care Provider] - Forms: ED Department Discharge Additional Instructions: You are seen in the emergency department with concerns regarding infection to your right heel. Wound appears to have some infection noted however the redness and swelling has decreased from previous wound VAC change. Continue to have physical therapy cordelia the redness noted around your wound. Continue scheduled wound VAC changes with physical therapy. You will be placed on doxycycline 100 mg twice daily for 14 days. Please keep appointment as previously scheduled with your physician for February 20. Should your condition worsen or change, should you noticed increased purulent drainage from your wound, or significant fever, body aches, or chills please return to the emergency department. Sepsis Event Note (ED) - Evaluation Sepsis Screening Result: No Definite Risk - Focused Exam Vital Signs: Vital Signs Temp Pulse Resp BP Pulse Ox 02/04/20 11:28 98.2 F 93 18 112/72 100
[2020-02-04] MEDS ORDERED: Doxycycline 100 MG Cap PO ONE (12:47)
--- NOTE | 2020-02-04 14:45 | CR ---
Right calcaneus: 2 views of the right calcaneus were obtained. Comparison: No previous calcaneus exam is available. Findings: Multiple screws are seen within the calcaneus. Posterior calcaneus shows evidence of a lucent line which may be incompletely healed. On the axial view there is a defect within the posterior calcaneus in an area of soft tissue infection compatible with osteomyelitis. Soft tissue air is seen. Bony structures are diffusely osteoporotic. Impression: 1. Soft tissue air compatible with soft tissue infection. 2. Bony erosion is noted posteriorly on the axial view compatible with osteomyelitis. 3. Osteopenia. Diagnostic code #5
[2020-02-04] MEDS ORDERED: Vancomycin 1 GM, Vancomycin 500 MG in Sodium Chloride 0.9% 500 ML IV ONE ×2 (15:00→16:00)
== END 2020-02-04 17:49 | disposition home or self-care (01) ==
LOC: JD.ED 11:17
DX: T81.89XA Other complications of procedures, not elsewhere classified, initial encounter (principal); E11.40 Type 2 diabetes mellitus with diabetic neuropathy, unspecified; F32.9 Major depressive disorder, single episode, unspecified; F17.210 Nicotine dependence, cigarettes, uncomplicated; Z88.5 Allergy status to narcotic agent; Z88.8 Allergy status to other drugs, medicaments and biological substances; Z79.899 Other long term (current) drug therapy; Z79.4 Long term (current) use of insulin
CPT/HCPCS: 36415; 73650; 80053; 85025; 85652; 86140; 96365; 96366; 99284; A9270; J3370; J7040